=== PATIENT | female | born 1935 | race Caucasian/White ===

== ENCOUNTER 2021-10-16 04:59 | Emergency (ER) | payer OTHER, MEDICAID ==
[~2021-10-16] VITALS: Ht 172.7 cm; Wt 113.4 kg
[~2021-10-16 04:59] MED LIST: BENA40TA89 PO; DIGO125T PO; DILT60TA3 PO; LIP20 PO; NITR0.4T47 SL; PANT40TA45 PO; TRAM50TA92 PO
[2021-10-16 05:14] VITALS: BP_SYST 156
[2021-10-16] MEDS ORDERED: LIDOCAINE VISCOUS 2%, 15 ML UDC ONE (05:25)
[2021-10-16] MEDS ORDERED: OXYMETAZOLINE HCL 0.05% NASAL SPRAY NS ONE (05:25)
[2021-10-16] MEDS ORDERED: OXYMETAZOLINE HCL 0.05% NASAL SPRAY NS PRN (05:30)
[2021-10-16] MEDS ORDERED: LIDOCAINE VISCOUS 2%, 15 ML UDC MM ONE (05:30)
[2021-10-16] MEDS ORDERED: PHEN15SP NS (05:45)
[2021-10-16 07:53] VITALS: BP_SYST 145
== END 2021-10-16 08:00 | disposition home or self-care (01) ==
LOC: SED 04:59
DX: R04.0 Epistaxis (principal); K21.9 Gastro-esophageal reflux disease without esophagitis
CPT/HCPCS: 30901; 99284; J2001

== ENCOUNTER 2021-10-16 21:27 | Emergency (ER) | payer OTHER, MEDICAID ==
[~2021-10-16] VITALS: Ht 172.7 cm; Wt 136.1 kg
[~2021-10-16 21:27] MED LIST changes: +PHEN15SP NS
--- NOTE | 2021-10-16 22:37 | NUR ---
VIRGIL Huynh at bedside examining patient.
[2021-10-16] MEDS ORDERED: ACETAMINOPHEN 325 MG TABLET PO ONE (23:00)
--- NOTE | 2021-10-16 23:37 | NUR ---
pt DC per MD's order DC instructions and prescriptions given to pt AOX4 VSS Verbally responsive Able to make needs known Pt exited ED in stable gait
== END 2021-10-16 23:39 | disposition home or self-care (01) ==
LOC: SED 21:27
DX: Z48.00 Encounter for change or removal of nonsurgical wound dressing (principal); R04.0 Epistaxis; K21.9 Gastro-esophageal reflux disease without esophagitis; Z79.899 Other long term (current) drug therapy
CPT/HCPCS: 99282

== ENCOUNTER 2021-11-09 12:57 | Inpatient (IN) | payer OTHER, MEDICAID ==
[~2021-11-09] VITALS: Ht 170.2 cm; Wt 111.6 kg
[2021-11-09 12:57] VITALS: BP_SYST 142
--- NOTE | 2021-11-09 12:57 | NUR ---
BROUGHT BACK TO BED #3 VIA WHEELCHAIR AND TRIAGED, REPORT GIVEN TO KATIANA
[2021-11-09] MEDS ORDERED: ALBUTEROL SULFATE 0.083% 2.5 MG/3 ML VIAL.NEB INH ONE ×2 (13:07→13:15)
[2021-11-09] MEDS ORDERED: IPRATROPIUM BROM 0.5 MG/2.5 ML VIAL.NEB (ATROVENT) INH ONE ×2 (13:07→13:15)
[2021-11-09 13:37] LABS: BASOPHILS # (AUTO) 0.1 K/uL (0.0-0.2); BASOPHILS % (AUTO) 0.5 % (0.0-2.0); EOSINOPHILS % (AUTO) 0.2 % (0.0-4.0); HEMATOCRIT 35.2 % (36-48); LYMPHOCYTES # (AUTO) 1.3 K/uL (1.0-5.5); LYMPHOCYTES % (AUTO) 7.7 % (20.5-51.5); MEAN CORPUSCULAR HEMOGLOBIN 30 pg (27-31); MEAN CORPUSCULAR HGB CONC 34 % (32-36); MEAN CORPUSCULAR VOLUME 89 fL (79.0-98.0); MONOCYTES # (AUTO) 0.5 K/uL (0.0-1.0); MONOCYTES % (AUTO) 3.2 % (1.7-9.3); NEUTROPHILS # (AUTO) 14.9 K/uL (1.8-7.7); NEUTROPHILS % (AUTO) 88.4 % (40.0-70.0); PLATELET COUNT (AUTO) 385 K/uL (130-430); RED BLOOD CELL COUNT(AUTO) 3.97 MIL/uL (4.2-6.2); RED CELL DISTRIBUTION WIDTH 14.5 % (9.0-15.0); WHITE BLOOD COUNT (AUTO) 16.9 K/uL (4.8-10.8)
[2021-11-09 13:40] LABS: ANION GAP 10 (5-15); CALCIUM 8.6 mg/dL (8.4-11.0); CHLORIDE 100 mmol/L (98-107); CREATININE 1.17 mg/dL (0.55-1.30); GLUCOSE 162 mg/dL (70-99); POTASSIUM 4.6 mmol/L (3.5-5.1); SODIUM SERUM 134 mmol/L (136-145); UREA NITROGEN, BLOOD 30 mg/dL (8-21)
[2021-11-09 13:52] LABS: ALANINE AMINOTRANSFERASE 17 U/L (12-78); ALBUMIN 2.8 g/dL (3.4-4.8); ASPARTATE AMINOTRANSFERASE 22 U/L (10-37); TOTAL BILIRUBIN 0.8 mg/dL (0.0-1.0)
[2021-11-09] MEDS ORDERED: DEXTROSE 50% JECT 50 ML DISP.SYRIN IVP PRN (16:30)
[2021-11-09] MEDS ORDERED: ASPIRIN 81 MG TABLET(ECOTRIN) PO ONE (16:30)
[2021-11-09] MEDS ORDERED: IPRATROPIUM/ALBUTEROL SULFATE 3 ML AMPUL.NEB (DUONEB) INH SCH (16:30)
[2021-11-09] MEDS ORDERED: NITROGLYCERIN 0.4 MG TAB.SUBL SL PRN (16:30)
[2021-11-09] MEDS ORDERED: ACETAMINOPHEN 325 MG TABLET PO PRN (16:30)
[2021-11-09] MEDS ORDERED: traMADol HCL HCL 50 MG TABLET (ULTRAM) PO PRN (16:30)
[2021-11-09 16:47] VITALS: BP_SYST 138
[2021-11-09] MEDS ORDERED: methylPREDNISolone SOD SUCC/PF 62.5 MG/ML VIAL IVP ONE (17:00)
[2021-11-09] MEDS ORDERED: cefTRIAXone 1 GM in D5W 50 ML IV SCH (17:00)
[2021-11-09] MEDS: IPRATROPIUM/ALBUTEROL SULFATE 3 ML AMPUL.NEB (DUONEB) INH PRN (17:01)
[2021-11-09 17:21] LABS: INR 1.1 (0.8-1.2); PROTHROMBIN TIME 11.6 SECS (9.5-12.5)
[2021-11-09 17:28] LABS: FREE T4 (FREE THYROXINE) 1.6 ng/dl (0.8-1.5); THYROID STIMULATING HORMONE 0.31 uIu/mL (0.36-3.74)
[2021-11-09 17:48] LABS: BILIRUBIN,URINE NEGATIVE (NEGATIVE); BLOOD, URINE NEGATIVE (NEGATIVE); COLOR,URINE YELLOW (YELLOW); GLUCOSE,URINE NEGATIVE (NEGATIVE); KETONES,URINE NEGATIVE (NEGATIVE); LEUKOCYTE ESTERASE ,URINE NEGATIVE (NEGATIVE); NITRITE, URINE NEGATIVE (NEGATIVE); PROTEIN URINE TRACE (NEGATIVE); UROBILINOGEN,URINE 0.2 (0.2-1.0)
[2021-11-09 17:58] LABS: CLARITY/URINE HAZY (CLEAR)
--- NOTE | 2021-11-09 18:18 | NUR ---
ADMISSION NOTE Received patient from ER via gurney. Patient admitted with diagnosis of . Patient is awake, alert, oriented X 4. Patient oriented to hospital room, call light, toileting, pain management and safety-teach back done. Patient informed that JOSE HANSON will be PRIMARY nurse and that their room number is 113B. Personal belongings checked and Belongings List documented. Call light within reach.
--- NOTE | 2021-11-09 18:19 | NUR ---
PATIENT REQUESTED TO SIT IN CHAIR NEXT TO BED, ASSISTED PATIENT TO CHAIR, CALL LIGHT IN REACH.
[2021-11-09 18:26] LABS: BACTERIA,URINE MODERATE /HPF (None Seen); MUCUS,URINE 2+ /LPF (None Seen); RBC,URINE 0-3 /HPF (0-3); WBC,URINE 0-3 /HPF (0-3)
[2021-11-09 18:32] VITALS: BP_SYST 121
--- NOTE | 2021-11-09 18:38 | NUR ---
STAT CT ANGIO ORDER PLACED
--- NOTE | 2021-11-09 18:38 | NUR ---
CRITICAL LAB: Laboratory called with critical lab value D-DIMER 721. Medical record number and patient name verified. Read back of values done. DR. ZHANG notified of value. CT ANGIO WITH CONTRAST ORDERED TO R/O PE orders given at this time.
--- NOTE | 2021-11-09 18:40 | NUR ---
CTA WITH CONTRAST CONSENT OBTAINED FROM PATIENT
--- NOTE | 2021-11-09 18:53 | NUR ---
PENDING PICK FROM RADIOLOGY DEPARTMENT, PATIENT AWARE.
--- NOTE | 2021-11-09 18:55 | NUR ---
CLOSING NOTE: REPORT GIVEN TO INCOMING NOC RN, ALL CARES ENDORSED.
--- NOTE | 2021-11-09 18:59 | NUR ---
MIDLINE ORDER RCVD FROM DR. ZHANG R/T POOR VENOUS ACCESS
--- NOTE | 2021-11-09 19:11 | NUR ---
1500 A/OX4 VSS ,PT IN ROOM FOR DYSPNEA, O2 SAT 95% 2 LITERS, DIMINISHED BREATH SOUNDS LOWER LOBES, RESPIRATIONS EVEN NON LABORED, ABLE TO MAKE CLEAR CONCISE SENTENCES, SITTING UP IN BED AWAITING FOR LAB RESULTS, AWARE OF POSSIBLE ADMISSION
[2021-11-09] MEDS ORDERED: iohexoL 350 mgI/mL, 100 ML INFUS..BTL IV ONE (19:28)
--- NOTE | 2021-11-09 19:45 | NUR ---
INITIAL NOTE AT INITIAL ASSESSMENT, PATIENT IS RESTING IN BED, STABLE, NO SIGNS OF RESPIRATORY DISTRESS. PATIENT VERBALIZES NO SHORTNESS OF BREATH, OR PAIN. PLAN OF CARE FOR THE EVENING COMMUNICATED WITH THE PATIENT AND FAMILY AT BEDSIDE. CALL LIGHT TEACH BACK IS SUCCESSFUL. BED IS LOCKED, ALARMED, AND AT THE LOWEST LEVEL. FALL, SAFETY, RESPIRATORY AND ISOLATION PRECAUTIONS WILL BE TAKEN THROUGHOUT THE NIGHT.
[2021-11-09 20:00] VITALS: BP_SYST 160
[2021-11-09] MEDS: PANTOPRAZOLE SODIUM 40 MG TAB PO SCH (20:31)
[2021-11-09] MEDS: DILTIAZEM HCL 60 MG TABLET PO SCH (20:33)
[2021-11-09] MEDS: lisinopriL 20 MG TABLET PO SCH (20:33)
[2021-11-09] MEDS: INSULIN REGULAR, HUMAN 100 UNITS/ML, 10 ML VIAL (humuLIN R) SUBCUT PRN (20:44)
[2021-11-09] MEDS ORDERED: methylPREDNISolone SOD SUCC/PF 62.5 MG/ML VIAL IVP SCH (21:00)
[2021-11-09] MEDS ORDERED: BENAZEPRIL HCL 20 MG TABLET (LOTENSIN) PO SCH (21:00)
--- NOTE | 2021-11-09 22:39 | NUR ---
PAGED: DR RODRIGUEZ PAGED TO NOTIFY THE TROPONIN , PRIMARY RN MADE AWARE ABOUT ELEVATED TROPONIN .
--- NOTE | 2021-11-09 22:45 | NUR ---
MIDLINE PLACED MIDLINE PLACED AT THIS TIME BY PICC LINE NURSE RADHA PER PROTOCOL. PATIENT TOLERATED WELL.
[2021-11-10] VITALS (7 sets, daily range): BP systolic 124–163
[2021-11-10] MEDS: IPRATROPIUM/ALBUTEROL SULFATE 3 ML AMPUL.NEB (DUONEB) INH PRN (00:09)
--- NOTE | 2021-11-10 00:21 | NUR ---
PAGED PAGED DOCTOR ZHANG FOR RESULTS OF CTA
--- NOTE | 2021-11-10 00:37 | NUR ---
SECOND PAGE FOR DOCTOR ZHANG FOR RESULTS OF CTA
--- NOTE | 2021-11-10 00:58 | NUR ---
CTA RESULTS / COMMUNICATION W/ DR. LEATHA ZHANG PAGED AT THIS TIME, HE WAS MADE AWARE THAT OF PATIENT'S CTA CHEST PRELIMINARY RESULTS WHICH SHOWED SCATTERED GLASSGROUND INFILTRATES. GAVE ORDERS FOR PCR TEST AND TO CONSULT DR. MERRILL. ALL ORDERS READ BACK, VERIFIED, AND WILL BE CARRIED OUT IMMEDIATELY. PATIENT WILL BE MOVED TO PUI ROOM. PATIENT NOTIFIED, CHARGE NURSE NOTIFIED.
--- NOTE | 2021-11-10 02:16 | NUR ---
Consultation Paged Reason for Consultation: Glass ground infiltrates on CTA chest Was consult called: Y Person who was notified: Huma Consulting Physician: Shimon Waggoner Ordering Physician: Dr. Howard
--- NOTE | 2021-11-10 02:21 | NUR ---
Consultation Paged Reason for Consultation: AF Was consult called: Y Person who was notified: Huma Consulting Physician: Dr. Baxter Ordering Physician: Dr. Howard
[2021-11-10] MEDS: IPRATROPIUM/ALBUTEROL SULFATE 3 ML AMPUL.NEB (DUONEB) INH SCH ×3 (05:04→14:17)
[2021-11-10 05:38] LABS: BASOPHILS % (AUTO) 0.2 % (0.0-2.0); HEMOGLOBIN 12.4 g/dL (12.0-16.0); MEAN CORPUSCULAR HEMOGLOBIN 30 pg (27-31); MEAN CORPUSCULAR HGB CONC 34 % (32-36); MEAN CORPUSCULAR VOLUME 88 fL (79.0-98.0); MONOCYTES # (AUTO) 0.1 K/uL (0.0-1.0); MONOCYTES % (AUTO) 1.2 % (1.7-9.3); NEUTROPHILS # (AUTO) 8.5 K/uL (1.8-7.7); NEUTROPHILS % (AUTO) 88.6 % (40.0-70.0); PLATELET COUNT (AUTO) 396 K/uL (130-430); RED BLOOD CELL COUNT(AUTO) 4.19 MIL/uL (4.2-6.2); RED CELL DISTRIBUTION WIDTH 14.6 % (9.0-15.0); WHITE BLOOD COUNT (AUTO) 9.6 K/uL (4.8-10.8)
[2021-11-10] MEDS: INSULIN REGULAR, HUMAN 100 UNITS/ML, 10 ML VIAL (humuLIN R) SUBCUT PRN ×4 (06:01→21:51)
--- NOTE | 2021-11-10 06:50 | NUR ---
CLOSING NOTE PATIENT WAS INCREASED TO 6L NASAL CANNULA THROUGHOUT THE NIGHT, BUT SHE HAD NO ACUTE RESPIRATORY DISTRESS EVENTS. AT THIS TIME SHE IS RESTING ON RECLINER AT BEDSIDE, STABLE. SHE REPORTED NO SHORTNESS OF BREATH OR PAIN DURING THE NIGHT. WILL CONTINUE TO MONITOR UNTIL SHIFT REPORT IS GIVEN AT BEDSIDE TO AM NURSE. ISOLATION AND RESPIRATORY PRECAUTIONS TAKEN THROUGHOUT THE NIGHT.
[2021-11-10 08:26] LABS: ALANINE AMINOTRANSFERASE 21 U/L (12-78); ALBUMIN 2.8 g/dL (3.4-4.8); ANION GAP 10 (5-15); ASPARTATE AMINOTRANSFERASE 22 U/L (10-37); CALCIUM 8.8 mg/dL (8.4-11.0); CHLORIDE 101 mmol/L (98-107); CREATININE 0.81 mg/dL (0.55-1.30); GLUCOSE 191 mg/dL (70-99); POTASSIUM 4.4 mmol/L (3.5-5.1); SODIUM SERUM 135 mmol/L (136-145); TOTAL BILIRUBIN 0.4 mg/dL (0.0-1.0); UREA NITROGEN, BLOOD 26 mg/dL (8-21)
[2021-11-10 10:05] LABS: CHOLESTEROL 94 mg/dL (<200); HDL CHOLESTEROL 29 mg/dL (>55); LDL CHOLESTEROL 54 mg/dL (<100); TRIGLYCERIDES 57 mg/dL (30-150)
[2021-11-10] MEDS: DILTIAZEM HCL 60 MG TABLET PO SCH ×2 (11:24→21:46)
[2021-11-10] MEDS: ATORVASTATIN 20 MG TABLET PO SCH (11:24)
[2021-11-10] MEDS: ASPIRIN 81 MG TABLET(ECOTRIN) PO SCH ×2 (11:25→12:15)
[2021-11-10] MEDS: DIGOXIN 0.125 MG TABLET PO SCH (11:25)
[2021-11-10] MEDS: PANTOPRAZOLE SODIUM 40 MG TAB PO SCH ×2 (11:25→21:46)
--- NOTE | 2021-11-10 11:47 | NUR ---
CONSULTATION PAGED/CALLED Reason for Consultation: [] resp. failure Person Who was Notified: []left message @[phone] Consulting Physician: [] Dr. Deleon [employer] Milling Machine Operator Specialty: []Pulmonary Ordering Physician: [] Dr. Howard Addendum: 11/10/21 at 1240 by Aspen Lutz RN called back and osei to Isak @[phone]
--- NOTE | 2021-11-10 17:10 | NUR ---
ID MD DR MARCELLE MERRILL WAS CALLED, RE: TO INFORM PT IS NEG PCR COVID AND TO GET AN ORDER TO DC COVID ISOLATION. SPOKE TO AMMON.
--- NOTE | 2021-11-10 18:00 | NUR ---
BRYAN COVID ISO: SPOKE WITH DR Quentin MERRILL DC COVID ISOLATION,PCR RESULTS NEGATIVE. PATIENT INFORMED.
--- NOTE | 2021-11-10 19:00 | NUR ---
EVENING ROUNDS: PATIENT HAVING DINNER ,SITTING ON THE RECLINER CHAIR PER REQUEST. CALL LIGHT WITH IN REACH. NO ACUTE DISTRESS.
--- NOTE | 2021-11-10 19:50 | NUR ---
PM ASSESSMENT; -Pt is a/ox4, sitting in recliner watching TV. Pt denies any chest pain,pain,sob,or any acute distress. Midline JOSUÉ with ports patent drsg cdi. IV site of rt hand #24, patent drsg cd, pt refused to removed this IV site. Pt is on 3L n/c oxy w8uqd=91%. Discussed poc,all safety measures, not to get out recliner or bed without calling for assistance, pt verbalized understanding. Educated and instructed how to use call light for assistance or if experiencing any pain,sob,or any acute distress, pt verbalized and returned good demonstration. Side rails x2, call light w/in reach. Cont to monitor pt.
--- NOTE | 2021-11-10 22:20 | NUR ---
ROUNDS; -Pt is sitting in a recliner, watching TV. Pt denies any chest pain,pain,sob,or any acute distress. Instructed pt to use call light whenever needs to return to bed, pt verbalized understanding. Call light w/in reach. Cont to monitor pt.
--- NOTE | 2021-11-10 23:19 | NUR ---
NOTES; BATHROOM -Assisting pt with mini assistance to bathroom with slow steady gaits. Pt is now sitting in a toilet, pt stated," I am okay, I will call you when I am done." Reminded pt to use call light for a bathroom when ready to return to bed, pt verbalized understanding. Cont to monitor pt.
[2021-11-10] MEDS: lisinopriL 20 MG TABLET PO SCH (23:58)
--- NOTE | 2021-11-11 01:17 | NUR ---
ROUNDS; -Pt is laying down in a recliner. Pt awake, watching TV. Pt denies any chest pain,pain,sob,or any acute distress. Pt's condition stable. Call light w/in reach. Cont to monitor pt.
[2021-11-11] MEDS: IPRATROPIUM/ALBUTEROL SULFATE 3 ML AMPUL.NEB (DUONEB) INH SCH ×5 (02:07→20:06)
--- NOTE | 2021-11-11 02:35 | NUR ---
Rounds;BATHROOM & RETURNED TO BED Pt denies any chest pain,pain,sob,or any acute distress. Pt is on 3L n/c oxy continuously,r8rkg=25%. Assisting pt from bathroom returning to bed safely. Call light w/in reach,Side rails x2. Cont to monitor pt.
--- NOTE | 2021-11-11 04:50 | NUR ---
ROUNDS; -Pt is sleeping in a recliner. Pt refused to sleep in bed. Pt stated,"I can't sleep in a bed because hard to breath." Pt denies any chest pain,pain,sob,or any acute distress. Pt is on 3L n/c oxy continuously,f2ejl=06%. Call light w/in reach,Side rails x2. Cont to monitor pt.
[2021-11-11 06:12] LABS: BASOPHILS % (AUTO) 0.2 % (0.0-2.0); HEMATOCRIT 37.1 % (36-48); LYMPHOCYTES # (AUTO) 0.8 K/uL (1.0-5.5); LYMPHOCYTES % (AUTO) 6.4 % (20.5-51.5); MEAN CORPUSCULAR HEMOGLOBIN 29 pg (27-31); MEAN CORPUSCULAR HGB CONC 33 % (32-36); MEAN CORPUSCULAR VOLUME 90 fL (79.0-98.0); MONOCYTES # (AUTO) 0.5 K/uL (0.0-1.0); MONOCYTES % (AUTO) 3.8 % (1.7-9.3); NEUTROPHILS # (AUTO) 11.3 K/uL (1.8-7.7); NEUTROPHILS % (AUTO) 89.6 % (40.0-70.0); PLATELET COUNT (AUTO) 435 K/uL (130-430); RED BLOOD CELL COUNT(AUTO) 4.14 MIL/uL (4.2-6.2); RED CELL DISTRIBUTION WIDTH 14.7 % (9.0-15.0); WHITE BLOOD COUNT (AUTO) 12.6 K/uL (4.8-10.8)
[2021-11-11] MEDS: INSULIN REGULAR, HUMAN 100 UNITS/ML, 10 ML VIAL (humuLIN R) SUBCUT PRN ×3 (06:20→17:02)
[2021-11-11 06:27] LABS: ALANINE AMINOTRANSFERASE 26 U/L (12-78); ALBUMIN 2.8 g/dL (3.4-4.8); ANION GAP 5 (5-15); ASPARTATE AMINOTRANSFERASE 23 U/L (10-37); CHLORIDE 103 mmol/L (98-107); CREATININE 0.79 mg/dL (0.55-1.30); GLUCOSE 194 mg/dL (70-99); LACTATE DEHYDROGENASE 196 U/L (81-234); POTASSIUM 4.2 mmol/L (3.5-5.1); SODIUM SERUM 135 mmol/L (136-145); TOTAL BILIRUBIN 0.6 mg/dL (0.0-1.0); UREA NITROGEN, BLOOD 33 mg/dL (8-21)
--- NOTE | 2021-11-11 06:56 | NUR ---
CLOSING NOTES; -Pt is sitting in recliner. Pt denies any chest pain,pain,sob,or any acute distress. Midline JOSUÉ with ports patent drsg cdi. Now, removed IV site of rt hand #24 per pt's request. Pt is on 3L n/c oxy g2ggw=19%. Side rails x2, call light w/in reach. Will endorse to next nurse to cont care.
--- NOTE | 2021-11-11 07:15 | NUR ---
Endorsed to Mary Kate-RN to [facility] care.
--- NOTE | 2021-11-11 07:25 | NUR ---
MORNING ROUNDS: PATIENT SITING ON THE RECLINER CHAIR.O2 4L/NC,GOOD SATURATION. CALL LIGHT WITH IN REACH. PATIENT DOES NOT WANT TO LAY ON HER BED,STATED NOT COMFORTABLE.CONTINUE TO MONITOR.
[2021-11-11 07:55] VITALS: BP_SYST 135
[2021-11-11] MEDS: ASPIRIN 81 MG TABLET(ECOTRIN) PO SCH (08:39)
[2021-11-11] MEDS: ATORVASTATIN 20 MG TABLET PO SCH (08:40)
[2021-11-11] MEDS: PANTOPRAZOLE SODIUM 40 MG TAB PO SCH ×2 (08:40→20:51)
[2021-11-11] MEDS: DIGOXIN 0.125 MG TABLET PO SCH (08:42)
[2021-11-11] MEDS: DILTIAZEM HCL 60 MG TABLET PO SCH ×2 (08:43→20:50)
[2021-11-11 11:21] VITALS: BP_SYST 135
--- NOTE | 2021-11-11 11:30 | NUR ---
BLOOD SUGAR: BLOOD SUGAR TAKEN WITH INSULIN GIVEN PER SLIDING SCALE. PATIENT SITTING ON THE CHAIR.
[2021-11-11] MEDS ORDERED: FLUCONAZOLE 100 MG TABLET (DIFLUCAN) PO ONE (15:45)
--- NOTE | 2021-11-11 16:40 | NUR ---
BRP WITH ASSIST: ASSISTED PATIENT TO THE TOILET.VOIDED. THEN ASSISTED PATIENT BACK TO THE CHAIR.O2 TO 3L/NC,GOOD SATURATION.
[2021-11-11 16:47] VITALS: BP_SYST 143
--- NOTE | 2021-11-11 17:00 | NUR ---
BLOOD SUGAR: BLOOD XBPLX=495XT/DL,REGULAR INSULIN 2 UNITS GIVEN PER SLIDING SCALE WITH NO PROBLEM.
--- NOTE | 2021-11-11 17:50 | NUR ---
DINNER: DINNER SERVED. NO PROBLEM.
[2021-11-11 19:00] VITALS: BP_SYST 144
[2021-11-11] MEDS: lisinopriL 20 MG TABLET PO SCH (20:51)
[2021-11-12] VITALS: BP_SYST 144
[2021-11-12] MEDS: IPRATROPIUM/ALBUTEROL SULFATE 3 ML AMPUL.NEB (DUONEB) INH SCH ×4 (01:05→19:54)
[2021-11-12 07:45] VITALS: BP_SYST 154
[2021-11-12] MEDS: DILTIAZEM HCL 60 MG TABLET PO SCH ×2 (09:53→20:28)
[2021-11-12] MEDS: PANTOPRAZOLE SODIUM 40 MG TAB PO SCH ×2 (09:54→20:26)
[2021-11-12] MEDS: ASPIRIN 81 MG TABLET(ECOTRIN) PO SCH (09:54)
[2021-11-12] MEDS: DIGOXIN 0.125 MG TABLET PO SCH (09:55)
[2021-11-12] MEDS: ATORVASTATIN 20 MG TABLET PO SCH (09:55)
[2021-11-12] MEDS: FLUCONAZOLE 100 MG TABLET (DIFLUCAN) PO SCH (09:55)
[2021-11-12] MEDS ORDERED: ZOLPIDEM TARTRATE 5 MG TABLET PO PRN (10:00)
[2021-11-12 12:36] VITALS: BP_SYST 120
[2021-11-12 14:20] LABS: BASOPHILS % (AUTO) 0.2 % (0.0-2.0); EOSINOPHILS % (AUTO) 0.2 % (0.0-4.0); HEMATOCRIT 40.1 % (36-48); LYMPHOCYTES # (AUTO) 1.7 K/uL (1.0-5.5); MEAN CORPUSCULAR HEMOGLOBIN 29 pg (27-31); MEAN CORPUSCULAR HGB CONC 32 % (32-36); MEAN CORPUSCULAR VOLUME 90 fL (79.0-98.0); MONOCYTES # (AUTO) 1.1 K/uL (0.0-1.0); MONOCYTES % (AUTO) 6.7 % (1.7-9.3); NEUTROPHILS % (AUTO) 81.9 % (40.0-70.0); PLATELET COUNT (AUTO) 485 K/uL (130-430); RED BLOOD CELL COUNT(AUTO) 4.43 MIL/uL (4.2-6.2); WHITE BLOOD COUNT (AUTO) 15.9 K/uL (4.8-10.8)
[2021-11-12 14:32] LABS: ANION GAP 8 (5-15); CALCIUM 9.4 mg/dL (8.4-11.0); CHLORIDE 104 mmol/L (98-107); CREATININE 0.95 mg/dL (0.55-1.30); GLUCOSE 150 mg/dL (70-99); POTASSIUM 4.1 mmol/L (3.5-5.1); SODIUM SERUM 139 mmol/L (136-145); UREA NITROGEN, BLOOD 36 mg/dL (8-21)
[2021-11-12 15:02] LABS: FREE T4 (FREE THYROXINE) 1.7 ng/dl (0.8-1.5)
[2021-11-12 15:03] LABS: DIGOXIN 0.6 ng/mL (0.80-2.00); THYROID STIMULATING HORMONE 0.44 uIu/mL (0.36-3.74)
--- NOTE | 2021-11-12 15:32 | NUR ---
PHYSICAL THERAPY EVALUATION INDICATES INDEPENDENT FUNCTIONAL MOBILITY. PATIENT IS SAFE TO AMBULATE WITH NURSING SUPERVISION. SHE DOES NOT NEED FURTHER PHYSICAL THERAPY AT THIS TIME. SHE WOULD BENEFIT WITH HOME HEALTH PT.
[2021-11-12 16:33] VITALS: BP_SYST 151
--- NOTE | 2021-11-12 19:35 | NUR ---
ROUNDS PATIENT SITTING UP IN THE CHAIR, WATCHING TV, VITALS STABLE, DENIES ANY PAIN AT THIS TIME. ASSESSMENT DONE AND DOCUMENTED. SEE FLOWSHEET. NEEDS ATTENDED TO. SAFETY MEASURES IN PLACED. WILL CONTINUE TO MONITOR.
[2021-11-12 20:00] VITALS: BP_SYST 147
[2021-11-12] MEDS: lisinopriL 20 MG TABLET PO SCH (20:27)
[2021-11-13] VITALS: BP_SYST 139
[2021-11-13] MEDS: IPRATROPIUM/ALBUTEROL SULFATE 3 ML AMPUL.NEB (DUONEB) INH SCH ×3 (01:00→13:00)
--- NOTE | 2021-11-13 01:06 | NUR ---
PT REFUSED SCHEDULED MED NEB TX AT THIS TIME, NO SIGNS OF RESPIRATORY DISTRESS. WILL CONTINUE TO MONITOR.
[2021-11-13 06:34] LABS: BASOPHILS % (AUTO) 0.2 % (0.0-2.0); EOSINOPHILS # (AUTO) 0.1 K/uL (0.0-0.4); EOSINOPHILS % (AUTO) 0.5 % (0.0-4.0); HEMOGLOBIN 12.7 g/dL (12.0-16.0); LYMPHOCYTES # (AUTO) 1.7 K/uL (1.0-5.5); LYMPHOCYTES % (AUTO) 13.8 % (20.5-51.5); MEAN CORPUSCULAR HEMOGLOBIN 29 pg (27-31); MEAN CORPUSCULAR HGB CONC 32 % (32-36); MEAN CORPUSCULAR VOLUME 90 fL (79.0-98.0); MONOCYTES # (AUTO) 0.9 K/uL (0.0-1.0); MONOCYTES % (AUTO) 7.2 % (1.7-9.3); NEUTROPHILS # (AUTO) 9.5 K/uL (1.8-7.7); NEUTROPHILS % (AUTO) 78.3 % (40.0-70.0); PLATELET COUNT (AUTO) 435 K/uL (130-430); RED BLOOD CELL COUNT(AUTO) 4.35 MIL/uL (4.2-6.2); RED CELL DISTRIBUTION WIDTH 14.7 % (9.0-15.0); WHITE BLOOD COUNT (AUTO) 12.1 K/uL (4.8-10.8)
[2021-11-13 06:37] LABS: ANION GAP 8 (5-15); CHLORIDE 102 mmol/L (98-107); CREATININE 0.88 mg/dL (0.55-1.30); GLUCOSE 144 mg/dL (70-99); POTASSIUM 4.2 mmol/L (3.5-5.1); SODIUM SERUM 139 mmol/L (136-145); UREA NITROGEN, BLOOD 34 mg/dL (8-21)
[2021-11-13] MEDS: FLUCONAZOLE 100 MG TABLET (DIFLUCAN) PO SCH (08:59)
[2021-11-13] MEDS: PANTOPRAZOLE SODIUM 40 MG TAB PO SCH (09:01)
[2021-11-13] MEDS: DIGOXIN 0.125 MG TABLET PO SCH (09:01)
[2021-11-13] MEDS: ASPIRIN 81 MG TABLET(ECOTRIN) PO SCH (09:02)
[2021-11-13] MEDS: ATORVASTATIN 20 MG TABLET PO SCH (09:02)
[2021-11-13] MEDS: DILTIAZEM HCL 60 MG TABLET PO SCH (09:02)
[2021-11-13] MEDS ORDERED: LEVO500T90 PO (11:44)
[2021-11-13] MEDS ORDERED: IPRA3AMP9 INH (11:44)
[2021-11-13] MEDS ORDERED: DIF100 PO (11:44)
[2021-11-13] MEDS ORDERED: Aspirin Ec PO (11:44)
[2021-11-13] MEDS ORDERED: LACT1TAB14 PO (11:45)
--- NOTE | 2021-11-13 12:06 | NUR ---
Discharge Planning: Alecia Lawson#[phone] P#[phone] Tianna Stahl [phone] DCP to follow up Addendum: 11/13/21 at 1256 by Leanne DE LEON Alecia Lawson#[phone] P#[phone] is reviewing and will call to confirm acceptance.
[2021-11-13 14:22] VITALS: BP_SYST 145
--- NOTE | 2021-11-13 15:02 | NUR ---
PT FAMILY PRESENT FOR D/C HOME , PT HAS NO C/O PAIN ADN NO RESP DISTRESS, ASSESSED PT DURING ROUNDS TODAY AND D/C PT HOME. PT AMBULATES WELL WITH NO SOB ADN N O C/O PAIN. IV PATENT AND D/C U[[facility] D/C HOME ADN DRSG APPLIED CATH INTACT AND COMPLETE. NO RESP, GI/ ISSUES AND RX GIVEN TO SON UPON D/C. PT AMBULATED [facility] D/C HOME UPON CHOICE TO DO SO.
== END 2021-11-13 14:50 | disposition home or self-care (01) | DRG 871 ==
LOC: SED 12:57 → STU 15:57
PROVIDERS: ADMIT Internal Medicine; ATTEND Internal Medicine
PROC: 05HY33Z Insertion of Infusion Device into Upper Vein, Percutaneous Approach (ICD-10-PCS; principal; 2021-11-09)
PROC: B54MZZA Ultrasonography of Right Upper Extremity Veins, Guidance (ICD-10-PCS; 2021-11-09)
DX: A41.9 Sepsis, unspecified organism (principal); I50.33 Acute on chronic diastolic (congestive) heart failure; J18.9 Pneumonia, unspecified organism; J96.20 Acute and chronic respiratory failure, unspecified whether with hypoxia or hypercapnia; I24.8 Other forms of acute ischemic heart disease; I48.0 Paroxysmal atrial fibrillation; E78.5 Hyperlipidemia, unspecified; E11.9 Type 2 diabetes mellitus without complications; M19.90 Unspecified osteoarthritis, unspecified site; E66.9 Obesity, unspecified; I11.0 Hypertensive heart disease with heart failure; J45.909 Unspecified asthma, uncomplicated; Z20.822 Contact with and (suspected) exposure to COVID-19; J33.8 Other polyp of sinus; Z79.899 Other long term (current) drug therapy; Z87.891 Personal history of nicotine dependence; Z68.38 Body mass index [BMI] 38.0-38.9, adult
CPT/HCPCS: 36415; 70486-TC; 71045; 71275; 76376; 76536-TC; 80048; 80053; 80061; 80162; 81000; 82962; 83036; 83615; 83735; 83880; 84439; 84443; 84484; 85025; 85379; 85610-TC; 85730-TC; 87040; 87086; 93005; 93306; 93970; 94640; 94760; 96365; 96375; 99285; G0378; J0696; J1815; J1956; J2930; J7060; J7613; Q9967; U0003